=== PATIENT | female | born 1960 | race Caucasian/White ===

== ENCOUNTER 2016-09-03 15:50 | Emergency (ER) | payer OTHER ==
[~2016-09-03] VITALS: Ht 165.1 cm; Wt 99.8 kg
--- NOTE | 2016-09-03 17:25 | ED GENERAL ADULT ---
History of Present Illness General Chief Complaint: Skin Rash/ Abcess Stated Complaint: RASH ON BODY Source: patient Exam Limitations: no limitations Vital Signs & Intake/Output Vital Signs & Intake/Output Vital Signs Date Time Temp Pulse Resp B/P Pulse O2 O2 Flow FiO2 Ox Delivery Rate 09/03 1815 98.0 62 18 127/73 98 Room Air 09/03 1613 96.3 70 20 123/87 98 Room Air Room Air Allergies Coded Allergies: MDX - Iodine (IODINE) (RASH 09/05/11) Reconcile Medications Doxycycline Hyclate (Vibramycin) 100 MG CAPSULE 1 CAP PO BID foll folliculitis Prednisone 20 MG TABLET 1 TAB PO BID contact dermatitis Triage Note: PT TO ED WITH C/O RASH TO BODY FOR SEVERAL DAYS, SPREADING TO ARMS,CHEST UP NECK AREA AND ABD. NO NEW SOAPS OR CLOTHING, FOODS. Triage Nurses Notes Reviewed? yes Onset: Abrupt Duration: day(s): Timing: recent history HPI: 09/03/16 This is a 55-year-old female presents to the emergency department complaining of a rash. The patient states she developed a rash that is itchy on her antecubital fossa, her neck and her anterior chest. She says she was wearing a leather jacket. She says she is allergic to leather dye (tannins). She denies fever or other complaints. She became concerned because the rash spread up her neck. The onset of the symptoms were abrupt, the duration has been several days , the severity is significant as her symptoms required to come to the emergency department for care. She has a past medical history of celiac disease, asthma, and eczema, past surgical history for hysterectomy and ovarian cyst removal. She is allergic to iodine bananas, other certain foods, leather tannins. She has no fever no tick bite no recent hot tub use. Her medications included decongestant, losartan, Singulair, Cozaar, baby aspirin daily, vitamin C. There are no new drugs. She says she also takes a gel To help with eczema. On physical exam she has a follicular rash on her arms and her neck. She is also it on the anterior chest. There is no rash on the back or on the legs. The findings are consistent with contact dermatitis. She was treated with prednisone. She was also instructed to take Vibramycin one tablet by mouth twice a day for possible folliculitis Past History Travel History Traveled to [place] past 21 day No Medical History Any Pertinent Medical History? see below for history Neurological: migraine EENT: NONE Cardiovascular: hypertension Respiratory: asthma Gastrointestinal: irritable bowel syndrome, CELIAC Hepatic: NONE Renal: NONE Musculoskeletal: NONE Psychiatric: NONE Endocrine: NONE Blood Disorders: HIGH CALCIUM AT TIMES Cancer(s): NONE HABILITATION ASSISTANT/Reproductive: NONE Surgical History Surgical History: non-contributory Psychosocial History What is your primary language [place] Tobacco Use: Never used ETOH Use: denies use Illicit Drug Use: denies illicit drug use Family History Hx Contributory? No Review of Systems Review of Systems Constitutional: Denies: fever. EENTM: Reports: no symptoms. Respiratory: Denies: short of breath. Cardiovascular: Denies: chest pain. GI: Denies: abdominal pain. Genitourinary: Reports: no symptoms. Musculoskeletal: Reports: no symptoms. Skin: Reports: see HPI. Neurological/Psychological: Reports: no symptoms. Hematologic/Endocrine: Denies: bruising, bleeding. Physical Exam Physical Exam General Appearance: well developed/nourished, alert, awake, anxious, mild distress Head: atraumatic, normal appearance Eyes: Bilateral: normal appearance, PERRL, EOMI. Ears, Nose, Throat: normal pharynx, normal ENT inspection Neck: normal inspection, supple Respiratory: normal breath sounds, chest non-tender, no respiratory distress Cardiovascular: regular rate/rhythm Gastrointestinal: non-tender Back: normal range of motion Extremities: normal inspection, normal range of motion, no edema Neurologic/Psych: no motor/sensory deficits, awake, alert, oriented x 3 Skin: rash Core Measures ACS in differential dx? No CVA/TIA Diagnosis: No Severe Sepsis Present: No Septic Shock Present: No Progress Differential Diagnoses I considered the following diagnoses in my evaluation of the patient: [Contact dermatitis, folliculitis, cellulitis, abscess, Lyme disease, syphilis, adverse drug reaction, necrotizing fasciitis, hot tub folliculitis poison darrell, eczema, varicella-zoster, were all considered] Plan of Care: follow up with PCP this week Initial ED EKG: none Departure Departure Disposition: HOME OR SELF CARE Condition: Stable Clinical Impression Primary Impression: Rash and nonspecific skin eruption Referrals: ERICA JOHNSON MD (PCP/Family) Departure Forms: Customer Survey General Discharge Information Prescriptions: Current Visit Scripts Prednisone 1 TAB PO BID #10 TAB Doxycycline Hyclate (Vibramycin) 1 CAP PO BID #14 CAP Comments 09/03/16 The patient has a papular rash on the antecubital area bilaterally, the neck and anterior chest, and abdomen, it is somewhat worse in the skin folds. There is no rash on the back or legs. There are no vesicles. Critical Care Note Critical Care Note Critical Care Time: non-applicable
[2016-09-03] MEDS ORDERED: PREDNISONE20 M1 PO (18:02)
[2016-09-03] MEDS ORDERED: VIBRAMYCIN100 MG PO (18:02)
[2016-09-03 18:15] VITALS: BP 127/73
== END 2016-09-03 18:19 ==
LOC: ERH 15:50
DX: R21 Rash and other nonspecific skin eruption (principal)